=== PATIENT | female | born 1970 | race Hispanic/Latino ===

== ENCOUNTER 2017-08-02 18:03 | Emergency (ER) | payer MEDICARE ==
[2017-08-02 18:07] VITALS: BP 130/63; PULSE 94; RESP 16; TEMP 98; O2SAT 98
--- NOTE | 2017-08-02 20:11 | ED PDOC ---
HPI: Psych/Substance Abuse Time Seen by Provider: 08/02/17 18:12 Chief Complaint (Nursing): Psychiatric Evaluation Chief Complaint (Provider): "Upset With Grandmother" History/Exam Limitations: no limitations Suicide/Self Injury Attempted (Context): None Additional Complaint(s): 46 year old female who has developmental disabilities is brought into the ED to be evaluated. The patient states that she lives with her grandmother who has been sick. She reports that since her grandmother became sick she has had to help to take care of her and do chores around the house. The patient states that she is upset with her grandmother because she feels as though she cant get 15 minutes to herself. PMD: Dr. Burr Past Medical History Reviewed: Historical Data, Nursing Documentation, Vital Signs Vital Signs: Last Vital Signs Temp 98.0 F 08/02/17 18:04 Pulse 94 H 08/02/17 18:04 Resp 16 08/02/17 18:04 BP 130/63 08/02/17 18:04 Pulse Ox 98 08/02/17 18:04 - Medical History PMH: No Chronic Diseases - Surgical History Surgical History: No Surg Hx - Family History Family History: States: Unknown Family Hx - Living Arrangements Living Arrangements: With Family - Allergies Allergies/Adverse Reactions: Allergies Allergy/AdvReac Type Severity Reaction Status Date / Time No Known Allergies Allergy Verified 08/02/17 18:04 Review of Systems ROS Statement: Except As Marked, All Systems Reviewed And Found Negative Constitutional: Positive for: Other ("Upset with grandmother") Physical Exam - Reviewed Nursing Documentation Reviewed: Yes Vital Signs Reviewed: Yes - Physical Exam Appears: Positive for: Non-toxic (Poor hygiene), No Acute Distress Head Exam: Positive for: NORMAL INSPECTION Skin: Positive for: Normal Color, Warm, Dry Eye Exam: Positive for: Normal appearance, EOMI, PERRL Cardiovascular/Chest: Positive for: Regular Rate, Rhythm, Chest Non Tender. Negative for: Tachycardia Respiratory: Positive for: Normal Breath Sounds. Negative for: Wheezing, Respiratory Distress Neurologic/Psych: Positive for: Alert, Oriented, Gait - ECG O2 Sat by Pulse Oximetry: 98 (RA) Pulse Ox Interpretation: Normal Medical Decision Making Medical Decision Makin Initial Impression 46 year old female presenting with Initial Plan: * Crisis Evaluation * Reevaluation Documented by Hyacinth Cr acting as a scribe for Alexandria Nye PA-C. All medical record entries made by the Scribe were at my direction and personally dictated by me. I have reviewed the chart and agree that the record accurately reflects my personal performance of the history, physical exam, medical decision making, and the department course for this patient. I have also personally directed, reviewed, and agree with the discharge instructions and disposition. Disposition - Clinical Impression Clinical Impression: Adjustment disorder - Patient ED Disposition Is Patient to be Admitted: No Counseled Patient/Family Regarding: Diagnosis - Disposition Disposition: Routine/Home Disposition Time: 20:04 Condition: STABLE Instructions: Stress (ED) Forms: [facility] (Albanian) - POA Present On Arrival: None
== END 2017-08-02 20:50 | disposition home or self-care (01) ==
LOC: H.ER 18:03
DX: F43.20 Adjustment disorder, unspecified (principal)